=== PATIENT | female | born 1950 | race Caucasian/White ===

== ENCOUNTER → 2016-05-15 18:24 | Outpatient (CLI) | payer MEDICARE ==
[2014-06-18 09:57] VITALS: BMI 25.7
[~2016-05-15 18:24] MED LIST: CYCLOBENZAPRINE10 MG PO; EFFEXOR75 MG PO; LUNESTA3 MG PO; LYRICA100 MG PO; MS CONTIN30 MG PO; PEPCID40 MG PO; TRAZODONE HCL50 MG PO; ZIAC 10-6.25 MG1 TAB PO
== END | disposition home or self-care (01) ==
LOC: D.MAMMO 14:15
DX: Z12.31 Encounter for screening mammogram for malignant neoplasm of breast (principal)

== ENCOUNTER → 2017-05-15 13:53 | Outpatient (CLI) | payer MEDICARE, OTHER ==
[2014-06-18 09:57] VITALS: BMI 25.7
== END | disposition home or self-care (01) ==
LOC: D.CT 13:53
DX: R63.4 Abnormal weight loss (principal)

== ENCOUNTER 2019-02-16 08:00 | Outpatient (CLI) | payer MEDICARE ==
[2014-06-18 09:57] VITALS: BMI 25.7
== END 2019-02-16 23:59 | disposition home or self-care (01) ==
LOC: D.MAMMO 08:00
PROVIDERS: ATTEND Family Medicine
DX: Z12.31 Encounter for screening mammogram for malignant neoplasm of breast (principal)

== ENCOUNTER 2019-03-04 09:00 | Outpatient (CLI) | payer MEDICARE ==
[2014-06-18 09:57] VITALS: BMI 25.7
== END 2019-03-04 10:00 | disposition home or self-care (01) ==
LOC: D.MAMMO 09:00
PROVIDERS: ATTEND Family Medicine
DX: R92.8 Other abnormal and inconclusive findings on diagnostic imaging of breast (principal)

== ENCOUNTER 2019-12-07 14:00 | Outpatient (CLI) | payer MEDICARE ==
[2014-06-18 09:57] VITALS: BMI 25.7
== END 2019-12-07 15:00 | disposition home or self-care (01) ==
LOC: D.MAMMO 14:00
PROVIDERS: ATTEND Family Medicine
DX: R92.8 Other abnormal and inconclusive findings on diagnostic imaging of breast (principal)